=== PATIENT | female | born 2000 | race Caucasian/White ===

== ENCOUNTER 2019-07-31 09:42 | Outpatient (CLI) | payer OTHER, MEDICAID, SELFPAY ==
--- NOTE | 2019-07-31 09:56 | NM_ITS ---
WS: [id number] NUCLEAR MEDICINE HIDA SCAN WITH GALLBLADDER EJECTION FRACTION HISTORY: VOMITING COMPARISON: 03/19/2019 ultrasound. TECHNIQUE: The patient was intravenously injected with 7.6 mCi of TC99m Mebrofenin. Immediate imaging over the right upper quadrant was followed by 5 minute image and additional images for a total of 60 minutes. Normal uptake of radiotracer throughout the liver. Activity identified in the gallbladder at 20 minutes and well distended by 60 minutes. Activity in the proximal small bowel was seen by 10 minutes. Good washout of the radiotracer from the liver by 60 minutes. The patient then drank 8 ounces of Ensure Plus. Ejection fraction at 60 minutes was 95%. Normal GB ej ection fraction is 35-75%. Post fatty meal symptoms: Mild nausea. NM/NM hepatobiliary w phar* [id number] IMPRESSION: 1. Normal HIDA scan. 2. Normal gallbladder ejection fraction.
== END 2019-07-31 09:43 | disposition home or self-care (01) ==
LOC: RAD 09:50
PROVIDERS: PCP Nurse Practitioner; Visit Provider Nurse Practitioner
DX: R11.10 Vomiting, unspecified (principal)
CPT/HCPCS: 78227; A9537

== ENCOUNTER → 2022-09-26 15:51 | Outpatient (BNVA) | payer BC, MEDICAID, SELFPAY | PROVIDERS: PCP Nurse Practitioner; Visit Provider Nurse Practitioner Family | DX: E86.0 Dehydration (principal) | CPT/HCPCS: 80053; 85025 ==

== ENCOUNTER 2023-11-15 14:24 | Outpatient (CLI) | payer SELFPAY ==
--- NOTE | 2023-11-15 14:42 | US_ITS ---
WS: [id number] ULTRASOUND THYROID TECHNIQUE: Ultrasound of the thyroid. CLINICAL INFORMATION: THYROID FULLNESS COMPARISON: None. FINDINGS: Thyroid: Right and left thyroid lobes are normal in size with diffuse coarse heterogeneous thyroid ec hotexture with a micronodular pattern. Associated increased vascularity. No thyroid nodules are present. Right thyroid lobe: 4.7 cm x 1.8 cm x 1.4 cm Left thyroid lobe: 3.4 cm x 1.8 cm x 1.4 cm. Isthmus: 0.4 mm. Cervical lymphadenopathy: None. US/US thyroid [id number] IMPRESSION: 1. Diffuse heterogeneous thyroid echotexture with a micronodular pattern and s ome increased vascularity. Recommend correlation with thyroid function studies. Findings can be seen with thyroiditis such as Kusum's thyroiditis. 2. No suspicious nodules to target for biopsy.
== END 2023-11-15 14:25 | disposition home or self-care (01) ==
PROVIDERS: PCP Nurse Practitioner; Visit Provider Nurse Practitioner
DX: E07.89 Other specified disorders of thyroid (principal)
CPT/HCPCS: 76536